=== PATIENT | male | born 1975 | race Two or more races ===

== ENCOUNTER 2023-05-26 14:29 | Emergency (ER) | payer OTHER, SELFPAY ==
[2023-05-26 15:09] VITALS: BP 142/98; PULSE 108; RESP 16; TEMP 37.8; O2SAT 95; BMI 28.9
--- NOTE | 2023-05-26 15:10 | ED.GENADULT ---
HPI - General Adult General Chief complaint: Back Pain/Injury Stated complaint: back pain/ headache Time Seen by Provider: 05/26/23 15:18 Source: patient Mode of arrival: ambulatory Limitations: no limitations History of Present Illness HPI narrative: 47-year-old male presents with [id number] thoracic back pain going on since Friday, with minimal relief from Tylenol. Reports chronic back pain that became acutely worse Friday when he woke up. Cannot recall any mechanism of injury or inciting event. Reports pain is 10/10, and worse with walking and lifting. Also reports constant, frontal headache that started Friday. Reports long-standing left-sided tinnitus. He was seen at [facility] Thursday 05/24 for these complaints. Lab work at [facility], including troponins, D-dimer, TFTs were normal. EKG unremarkable. CXR unremarkable. Reports some fatigue, states falling asleep at wheel on Friday at 3AM leaving work. Patient reports some nausea as well as dark black stool on Friday after medication he received at [facility]. Works as a machinist wood. He denies fevers, chills, numbness, tingling, neck stiffness, vision changes, confusion, dizziness, urinary/bowel incontinence/retention, vomiting. Denies back surgery. MD complaint: back pain, multiple complaints Onset (ago): day(s) Location: head and back Severity scale (1-10): 10 Quality: aching Pain Consistency: constant Relieving factors: rest Exacerbating factors: movement Associated symptoms: denies other symptoms Related Data Previous Rx's Medication Instructions Recorded cyclobenzaprine 10 mg tablet 10 mg PO TID PRN muscle spasm #14 05/26/23 tabs lidocaine 5 % topical patch 1 patch topical DAILY #15 ea 05/26/23 naproxen 500 mg tablet 500 mg PO BID PRN pain #20 tabs 05/26/23 Allergies Allergy/AdvReac Type Severity Reaction Status Date / Time Unable to Assess Allergy Unverified 05/26/23 15:09 Review of Systems Review of Systems: Yes all other systems are reviewed and are negative [facility] Social History Social History Advance Directives: No Advance Directives Information Provided: Yes Physical Exam ED Vital Signs: Vital Signs - 24 hr 05/26/23 15:09 Temperature 100.0 F Pulse Rate 108 H Respiratory Rate 16 Blood Pressure 142/98 H Pulse Oximetry 95 Oxygen Delivery Method Room Air BMI result Body Mass Index 28.9 Const General: cooperative, healthy appearing, comfortable and no acute distress Nutritional Appearance: well nourished Orientation/consciousness: patient oriented x3 HENMT Head: Yes normocephalic and Yes atraumatic Ears: external ears normal and TM's normal bilaterally Eyes General: appearance normal, both eyes and all related structures Pupils: Equal, round and reactive pupils present EOM: EOMs intact bilaterally Direct Ophthalmoscopy: normal light reflex and no photophobia Neck Neck: Yes normal visual inspection and Yes full ROM Resp Effort & Inspection: normal respiratory effort and able to speak in complete sentences Auscultation: clear to auscultation bilaterally Cardio Rate: regular rate Rhythm: regular rhythm Back/Spine/Pelvis Other: Tender to palpation along thoracic spine. No CVA tenderness. Back: back tenderness Thoracic/Lumbar Spine: thoracic and lumbar spine normal to inspection Neuro General: patient oriented x3 Cranial nerves: Yes CN's II-XII intact bilaterally and Yes Equal, round and reactive pupils present Cognition (Neuro): normal cognition Motor exam (neuro): 5/5 motor strength present throughout Course Course Course Narrative: This is an RME: Additional HPI, ROS, PE not included below will be deferred to primary provider. 47-year-old male presents with mid back pain going on for past few days, was seen at [facility] last week for the same complaint. Patient denies fevers, chills, numbness tingling my headache, vision changes, dizziness, urinary/bowel incontinence/retention. Plan for oxygen. No indication for imaging Medications Administered Discontinued Medications Generic Name Dose Route Start Last Admin Trade Name Dariusq PRN Reason Stop Dose Admin Naproxen 500 mg 05/26/23 15:10 05/26/23 15:25 Naproxen 500 Mg Tablet PO 05/26/23 15:11 500 mg ONCE ONE Administration Medical Decision Making Medical Decision Making [facility] Narrative: Patient presents to ER for 2nd time in 2 days regarding back pain and headache. Reviewed labwork and imaging done at [facility]. Offered a repeat X-ray, but patient refused. requesting MRI which is not clinically indicated today. patient encouraged to f/u with his PCP Prescribed Naproxen, lidocaine patch, cyclobenzaprine for musculoskeletal pain. Recommended ice, rest, follow-up with PCP for any further imaging or persistence of symptoms. Differential Diagnosis Differential Diagnoses: The differential diagnosis associated with the presentation includes Cauda equina syndrome, ACS, PTX, thoracic spinal mass, muscle sprain, muscle strain. External Record Review External record reviewed: Outside ED record Prescription Management I considered prescription management with: Pain Medication Chronic Conditions Patient?s care impacted by: Other (chronic back pain) Critical Care Time Critical Care Time Critical Care Time: No Discharge Plan Discharge Clinical Impression: Back pain Patient Disposition: Home, Self-Care Instructions: Back Pain (ED) Additional Instructions: Your pain is most likely due to muscle strain and spasm. Limit bending, lifting or twisting. Use ice several times per day for 20 minutes at a time for the next 48 hours and then change to heat. Take medications as prescribed to help with pain and discomfort. Follow up with your Primary Care Doctor this week. If your pain worsens, if you develop new numbness, tingling, weakness, loss of function or incontinence call 911 or come back to the ER right away for evaluation. Prescriptions: New cyclobenzaprine 10 mg tablet 10 mg PO TID PRN (Reason: muscle spasm) Qty: 14 0RF lidocaine 5 % adhesive patch,medicated 1 patch topical DAILY Qty: 15 0RF Rx Instructions: leave on most painful area for up to 12 hrs naproxen 500 mg tablet 500 mg PO BID PRN (Reason: pain) Qty: 20 0RF Stand Alone Forms: Work/School Release Interventions: ED Discharge Assessment Last Done: 05/26/23 16:23 Discharge Date/Time: 05/26/23 16:23
[2023-05-26] MEDS: NaPROXEN 500 MG TABLET PO (15:25)
== END 2023-05-26 16:23 | disposition home or self-care (01) ==
PROVIDERS: Emergency Provider Emergency Medicine
DX: M54.6 Pain in thoracic spine (principal); R51.9 Headache, unspecified; R11.0 Nausea; H93.12 Tinnitus, left ear
CPT/HCPCS: 99283